=== PATIENT | female | born 1975 | race Caucasian/White ===

== ENCOUNTER → 2017-09-24 07:27 | Outpatient (CLI) | payer OTHER, SELFPAY ==
--- NOTE | 2017-09-24 | DI.RAD.S_ITS ---
PROCEDURE: XR FOOT LT MIN 3V INDICATIONS: LEFT FOOT PAIN TECHNIQUE: 3 views of the foot were acquired. COMPARISON: None. FINDINGS: Bones: No fractures or dislocations. No suspicious bony lesions. There are plantar fascia and Achilles tendon insertion spurs at the posterior calcaneus. Prominent lateral process at the base of the fifth metatarsal projecting lateral to the lateral margin of the cuboid bone by up to 1.1 cm. Soft tissues: No tibiotalar joint effusion. Achilles tendon appears normal. IMPRESSION: Calcaneal tendon insertion spurring is noted, no trauma found. Note is made of a prominent lateral process at the base of the fifth metatarsal bone which can predispose to lateral pain in that area. Dictated by: Gary Hutchinson M.D. on 09/24/2017 at 8:37 Approved by: Gary Hutchinson M.D. on 09/24/2017 at 8:39
== END ==
PROVIDERS: Family Provider Internal Medicine; PCP Internal Medicine; Visit Provider Podiatrist
DX: M79.672 Pain in left foot (principal); M77.32 Calcaneal spur, left foot
CPT/HCPCS: 73630

== ENCOUNTER → 2017-11-14 09:34 | Outpatient (CLI) | payer OTHER, SELFPAY ==
--- NOTE | 2017-11-14 | DI.MRI.S_ITS ---
PROCEDURE: MRFOOT LT WO CON INDICATIONS: PAIN AND SWELLING TECHNIQUE: Noncontrast sagittal T1 spin echo and T2 fast spin echo with fat saturation, long-axis T1 spin echo and T2 fast spin echo with fat saturation, short-axis T1 spin echo and T2 fast spin echo with fat saturation through the forefoot. COMPARISON: [facility], CR, XR FOOT LT MIN 3V, 09/24/2017, 7:11. FINDINGS: Image quality: Excellent. Bones and joints: No bone marrow contusions, stress reaction, or stress fractures. There is a bipartite medial sesamoid with mild edema along its corticated margins compatible with sesamoiditis. There is mild adjacent soft tissue edema in the plantar soft tissues. There is mild metatarsophalangeal joint degeneration with mild osteophytosis. No intraosseous lesions. Soft tissues: As noted above, there is mild edema within the plantar soft tissues along the medial sesamoid. The visualized plantar foot muscles demonstrate normal signal and bulk. Visualized flexor and extensor tendons appear intact, without tenosynovitis. The distal insertions of the peroneus brevis and longus tendons appear intact. The principal Lisfranc ligament appears intact. A small amount of intermetatarsal bursal fluid is demonstrated within the 1st metatarsal interspace as well as trace fluid in the 2nd through 4th interspaces. No soft tissue ganglion cysts. Sagittal images demonstrate no definite evidence for plantar plate tears. IMPRESSION: 1. Bipartite medial sesamoid with associated edema consistent with sesamoiditis. There is mild associated edema in the plantar soft tissues likely representing reactive changes. Dictated by: Kelby Morley M.D. on 11/14/2017 at 13:40 Approved by: Kelby Morley M.D. on 11/14/2017 at 13:47
== END ==
PROVIDERS: Family Provider Internal Medicine; PCP Nurse Practitioner Family; Visit Provider Podiatrist
DX: M25.872 Other specified joint disorders, left ankle and foot (principal); M79.672 Pain in left foot
CPT/HCPCS: 73718

== ENCOUNTER → 2021-08-06 11:43 | Outpatient (CLI) | payer OTHER, SELFPAY ==
[2021-08-06 13:18] LABS: COVID19 -Nasal RAPID Negative (Negative)
== END ==
PROVIDERS: Family Provider Internal Medicine; PCP Nurse Practitioner Family; Visit Provider Family Medicine Sleep Medicine
DX: Z20.822 Contact with and (suspected) exposure to COVID-19 (principal)
CPT/HCPCS: 87635; C9803

== ENCOUNTER 2021-08-08 09:28 | Day surgery (SDC) | payer OTHER, SELFPAY ==
[2021-08-06 12:17] VITALS: BMI 38.4
[2021-08-08] VITALS (9 sets, daily range): BP systolic 104–142; BP diastolic 55–91; PULSE 70–88; RESP 9–20; TEMP 36.3–36.6; O2SAT 92–99; BMI 38.4
--- NOTE | 2021-08-08 | DI.RAD.S_ITS ---
PROCEDURE: XR LUMBAR SPINE 2-3V INDICATIONS: L5-S1 MICRODISCECTOMY TECHNIQUE: 2 intraoperative views of the lumbar spine were acquired. COMPARISON: None. FINDINGS: Intraoperative images demonstrate localization hardware at the lumbosacral junction. IMPRESSION: Intraoperative imaging as above. Dictated by: Crow Moya M.D. on 08/08/2021 at 14:12 Approved by: Crow Moya M.D. on 08/08/2021 at 14:12
[2021-08-08] MEDS: LACTATED RINGERS 1,000 ML 42 ML IV (10:12)
--- NOTE | 2021-08-08 11:43 | PM.PREOP ---
Pre-operative Note COVID-19 COVID-19 status: Negative Result date/Date tested (Pos, Neg/Pending): 08/07/21 Criteria for continued procedure: Expected advancement of disease process, Possibility delay results in more complex future surgery or treatment, Increased loss of function, Continuing or worsening of significant or severe pain, Deterioration of the patient's condition or overall health and Delay expected to result in less-positive ultimate med/surg outcome Interval Note History & Physical reviewed/Exam performed by Physician: Yes Changes to H&P: No
--- NOTE | 2021-08-08 12:23 | PM.OP.1 ---
Operative Date/Time/Diagnoses Date of procedure: 08/08/21 Time of procedure: 12:34 Pre-op diagnosis: 1. L5-S1 disc herniation 2. Lumbar radiculopathy Post-op diagnosis: same Procedure & Clinicians Procedure: 1. L5-S1 left microdiscectomy 2. Utilizations of microsurgical technique and operating microscope Same procedure as scheduled: Yes Surgeon: Reena Coelho Industrial Tech Instructor: Alfonso Castano Click Yes if Unassisted: No Anesthesia Type: General Operative Notes Closure Type: primary Specimen(s): none sent Estimated Blood Loss (mL): 1 Blood products transfused: none Procedure in detail: Patient was seen in the preoperative area. Risks and benefits of the surgery was discussed with the patient. Informed consent was obtained from the patient and placed in the chart. Surgical site was marked. Patient was taken to the operative room. General anesthesia was administered. Prophylactic antibiotic was given to the patient less than 30 min before the incision was made. Patient was placed into a prone position on the Harish table. Patient's back was then prepped and draped in the sterile fashion. Time-out was performed at this time. Using AP and lateral C-arm imaging the interval between L5-S1 was identified and marked on patient's back. A 1 inch incision 1 in from midline was made on the left side. The fascia was incised in line with skin incision. Globus MARS retractors was placed inside the incision and docked onto the L5 lamina. Using microsurgical technique and operating microscope, a L5 laminotomy was performed using a Kerrison rongeur. Liagamentum flavum was resected at the site of the laminotomy. The disc space at L5-S1 was identified. Microdiscectomy was performed by incising the annulus with #11 blade. Microcurettes and pituitary was used to removed herniated disc fragments of disc from the epidural space. Patient has this fragment is entirely in the neural foramen in the posterolateral region of the lumbar disc. There was also significant lateral recess stenosis due to the posterolateral herniation. Micro diskectomy was performed with significant decompression after that this fragment was resected. A significant portion of the annulus was found to be calcified which was carefully resected in order to perform additional decompression. Posterolateral fragment was removed using a pituitary. After the microdiskectomy was completed, the area medial lateral superior and inferior to the area of the microdiskectomy was inspected and explored using a micro curette. No other impinging structure was identified. The wound was then irrigated with sterile normal saline. 40 mg Depo-Medrol was placed into the epidural space. The deep fascia was closed with 1-0 Vicryl. The subcutaneous tissue was closed with 2-0 Vicryl. The skin was closed with 4-0 Monocryl. Patient tolerated the procedure well. There were no complications. Patient was transferred recovery room in stable condition. Complications: none Post-operative Condition: stable Disposition: PACU Plan for aftercare: Discharge to home
[2021-08-08] MEDS: CEFAZOLIN 2 GM/20 ML SYRINGE IV (12:40)
[2021-08-08] MEDS: BUPIVACAINE 0.25% (PF) 30 ML, EPINEPHrine 0.15 MG INJ (12:46)
--- NOTE | 2021-08-08 12:54 | SUR.OPER ---
Prone on spine table, head in foam head support, padded chest and pelvic supports, gel pad at knees, lower legs supported by pillows, nipples, genitalia and toes free of pressure, arms secured on foam padded arm boards at <90 degrees abduction. Gel padding place to bilateral abdomen to protect against spine table frame. Positioning assistance x 4. Position approved by Dr. Coelho.
[2021-08-08] MEDS: HYDROCODONE/ACET 5/325 TABLET 1 TAB PO (14:18)
== END 2021-08-08 15:02 | disposition home or self-care (01) ==
PROVIDERS: Family Provider Internal Medicine; PCP Family Medicine; Referring Provider Orthopaedic Surgery Orthopaedic Surgery of the Spine; Visit Provider Orthopaedic Surgery Orthopaedic Surgery of the Spine
PROC: (CPT 63030; principal; 2021-08-08 11:15)
DX: M51.26 Other intervertebral disc displacement, lumbar region (principal); M54.16 Radiculopathy, lumbar region; G25.81 Restless legs syndrome
CPT/HCPCS: 63030; 72100; 76000; 81025; 82962; J0171; J0690; J2250; J2704; J2920; J3010

== ENCOUNTER → 2024-12-07 17:39 | Outpatient (CLI) | payer OTHER, SELFPAY ==
--- NOTE | 2024-12-07 17:45 | DI.RAD.S_ITS ---
PROCEDURE: ORTHO-XR FOOT 3V WB RIGHT INDICATIONS: XRAY TECHNIQUE: 3 weight-bearing views acquired of the foot. COMPARISON: None. FINDINGS: Bones: Mild hallux valgus. Mild pes planus. [id number] degenerative changes of 1st metatarsophalangeal joint and mild scattered degenerative changes at the interphalangeal joints of the toes. Prominent posterior and plantar calcaneal enthesophytes. No acute fractures or dislocations. No suspicious bony lesions. Soft tissues: No tibiotalar joint effusion. No suspicious soft tissue calcifications. IMPRESSION: 1. Mild pes planus. 2. Mild valgus and [id number] degenerative changes of the 1st metatarsophalangeal joint. 3. Calcaneal enthesopathy. Approved by: Ronald Lambert M.D. on 12/08/2024 at 11:21
== END ==
PROVIDERS: Family Provider Internal Medicine; PCP Family Medicine; Referring Provider Podiatrist Foot & Ankle Surgery; Visit Provider Podiatrist Foot & Ankle Surgery
DX: M21.41 Flat foot [pes planus] (acquired), right foot (principal); M20.11 Hallux valgus (acquired), right foot; M77.31 Calcaneal spur, right foot; M79.671 Pain in right foot
CPT/HCPCS: 73630